=== PATIENT | male | born 1995 | race Caucasian/White ===

== ENCOUNTER 2021-10-21 23:12 | Emergency (ER) | payer OTHER, SELFPAY ==
[2021-10-21 23:13] VITALS: BP 157/102; PULSE 79; RESP 16; TEMP 36.6; O2SAT 98; BMI 30.5
--- NOTE | 2021-10-21 23:24 | EDS_ITS ---
HPI History of Present Illness Chief Complaint: Bite Detail of Chief Complaint: Dog bite left upper extremity Informant: patient and spouse/S.O. Occured/Mechanism Comment: Family dog bit patient's left thumb and distal third of the left forearm on the dorsal and volar side Onset/Context/Timing Onset: Hours Context: Sudden Onset Timing: Continuous Quality of Pain: - (Presently denies pain) Location: Dorsum of the left thumb, tip of the left thumb near the nail, 3 on the rachael Maximum Severity: Mild Worsened by: Palpation Relieved by: Rest Associated Symptoms Associated Symptoms: Negative for Parasthesia, Weakness and Loss of Funtion Narrative Narrative: Patient is a 25-year-old [id number] male who presents with multiple bites from family dog left upper extremity. There are 3 bites on the thumb 4 on the forearm tetanus is unknown. He denies allergies to antibiotics. He denies paresthesia, anesthesia or motor weakness. He has no other complaints. Tetanus Immunization: Unknown Prior similar symptoms: No Recent Illness/Hospitalization: No PFSH PFSH Medical History no medical history no medical history Home Medications amoxicillin-pot clavulanate 875 mg PO Q12H #6 tablet 10/21/21 [Rx Last Taken Unknown] Allergy/AdvReac Type Severity Reaction Status Date / Time No Known Allergies Allergy Verified 10/21/21 23:14 Surgical History no surgical history no surgical history Social History (Updated 10/21/21 @ 23:[address] Jerod Esposito MD) household members: spouse Smoking Status: Unknown if ever smoked substance use type: does not use ROS ROS ED Constitutional Constitutional ED: Denies chills, fever(s), subjective, sweats or weight loss Musculoskeletal Musculoskeletal: Reports other Details: Left hand and forearm pain due to dog bite ; Denies back pain, myalgias or neck pain Integumentary Reports other Details: Dog bites multiple ; Denies abscess, Abrasions or rash Neurologic Neurologic: Denies headache(s), paresthesias or weakness Hematologic/Lymphatic Hematologic/Lymphatic: Denies easy bleeding or easy bruising EXAM Physical Exam Const Vital Signs: 10/21/21 23:13 Temperature 97.8 F Temperature Source Temporal Pulse Rate 79 Respiratory Rate 16 Blood Pressure 157/102 H Blood Pressure Mean 120 Pulse Ox 98 Oxygen Delivery Method Room Air Positive well nourished, well developed and obese General Appearance ED: well developed and NAD Nutritional Appearance: obese HEENT normocephalic and atraumatic Eyes PERRL and EOMs intact bilaterally Neck full ROM and supple Resp normal respiratory effort Cardio regular rate and regular rhythm Extremity full ROM; Negative for normal to inspection Extremity Narrative: There is a 7 mm laceration tip of the left thumb near the nail. There is a superficial laceration over the IP joint of the left thumb and there is a small skin avulsion volar side of the left thumb. These lacerations are 7, 3 and 3 mm in length. There are 3 lacerations dorsal surface of the left forearm and one on the volar. The dorsal lacerations are 4 mm, 15 mm and 5 mm on the dorsal surface and a 4 mm on the volar surface median, radial and ulnar function intact. The extensor pollicis longus and brevis are intact left thumb. The vice president of nursing in the site, extensor commonest tendon is intact. The extensor minimized tendon is intact as well. The flexor carpi ulnaris and radialis are intact. There is no evidence of infection. General Extremety ED: Yes other findings; Negative for edema General Extremity: other findings; Negative for edema Neuro oriented x3 Sensorium / Orientation: alert MDM MDM MDM Narrative Medical decision making narrative: Tetanus was updated. Patient received Augmentin for dog bite prophylaxis and wounds will be repaired and described in the procedure section of the medical record. Procedures Other Procedures Procedure(s): Wounds were anesthetized 1% lidocaine with local infiltration. All wounds were irrigated with normal saline. The larger wound on the dorsal surface of left arm was closed using 5-0 Ethilon. 4 simple interrupted sutures were placed. The most proximal wound was not sutured. The most distal wound had one stitch placed. The other wounds were left open. Patient did receive dose of Augmentin in the emergency department. Discharge Plan Triage Chief Complaint: Bite ED Provider: Jerod Esposito Dx/Rx/DC Orders Clinical Impression: Dog bite of left forearm, Dog bite of left thumb Instructions: ED Dog Bite, ED Laceration: All Closures Prescriptions: New amoxicillin-pot clavulanate [amoxicillin-pot clavulanate] 875 MG tablet 875 mg PO Q12H Qty: 6 RF: 0 Primary Care Provider: Jayme Landeros Referrals: Jayme Landeros MD [Primary Care Provider] - 2 Days for wound check (Sutures out 7 days) NOT,DEFINED [NON-STAFF] - Activity Restrictions/Additional Instructions: 1. Keep wound clean and dry 2. Take antibiotics until gone 3. Sutures to be removed in 7 days. 4. With any concern for infection either see Dr. Pereyra or return to the emergency department Disposition Disposition: Home, Self Care
[2021-10-21] MEDS: Amox/Clavulanate 875 MG Tablet PO (23:30)
[2021-10-21] MEDS: Diphth,Pertuss(Acell),Tet Vac 0.5 ML Vial IM (23:30)
[2021-10-21] MEDS: Lidocaine 1% (20 ml mdv) 20 ML Vial INFILT (23:30)
[2021-10-21] MEDS: BACITRACIN 15 GM Tube 1 APPLIC TOPICAL (23:30)
[2021-10-22 02:18] VITALS: RESP 18
== END 2021-10-22 02:21 | disposition home or self-care (01) ==
LOC: ED 23:33
PROVIDERS: Emergency Provider Emergency Medicine; PCP Family Medicine; Visit Provider Emergency Medicine
DX: S61.052A Open bite of left thumb without damage to nail, initial encounter (principal); W54.0XXA Bitten by dog, initial encounter; Z23 Encounter for immunization
CPT/HCPCS: 12001; 90471; 90715; 99284